=== PATIENT | female | born 1990 | race Hispanic/Latino ===

== ENCOUNTER 2024-08-20 21:16 | Emergency (ER) | payer OTHER, SELFPAY ==
[2024-08-20 21:28] VITALS: BP 113/76
[2024-08-20] MEDS: TYLENOL 1000 MG PO (22:07)
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
[2024-08-20] MEDS: TORADOL 60 MG IM (23:10)
[2024-08-20] MEDS: ADACEL 0.5 ML IM (23:11)
[2024-08-20 23:31] VITALS: BP 117/79
== END 2024-08-20 23:50 | disposition home or self-care (01) ==
LOC: EMR 21:16
PROVIDERS: EMERGENCY PHYSICIAN Emergency Medicine
DX: T24.202A Burn of second degree of unspecified site of left lower limb, except ankle and foot, initial encounter (principal); X08.8XXA Exposure to other specified smoke, fire and flames, initial encounter; Z23 Encounter for immunization
CPT/HCPCS: 99282; 96372; 90471; 90715